=== PATIENT | female | born 1990 | race Caucasian/White ===

== ENCOUNTER 2018-04-29 17:40 | Inpatient (IN) | payer MEDICAID | END 2018-05-02 19:37 | disposition home or self-care (01) | LOC: SUR 3N 04-30 01:50 → ER 17:40 → ED HOLD 21:21 ==

== ENCOUNTER 2018-08-24 12:38 | Emergency (ER) | payer MEDICAID ==
[~2018-08-24] VITALS: Ht 175.3 cm; Wt 68.2 kg
[~2018-08-24 12:38] MED LIST: CLIN-96 PO; LACT1CAP26 PO
[2018-08-24] MEDS ORDERED: vancomycin/NS 1 GM ADD-VANTAGE 250 ML IV ONE (14:10)
[2018-08-24] MEDS ORDERED: CefTRIAXone 2gm/D5W 50ml 50 ML IV ONE (14:10)
[2018-08-24] MEDS ORDERED: normal saline 1000ML IV soln IV ONE (14:10)
[2018-08-24 14:46] LABS: BASOPHILS % (AUTO) 0.4 % (0-1); EOSINOPHILS % (AUTO) 0.5 % (0-6); HEMATOCRIT 38.6 % (35.0-45.0); HEMOGLOBIN 12.9 g/dl (12.0-16.0); LYMPHOCYTES # (AUTO) 1.4 X10'3 (1.1-4.8); LYMPHOCYTES % (AUTO) 18.5 % (21-51); MEAN CORPUSCULAR HEMOGLOBIN 29.3 PG (27.0-31.0); MEAN CORPUSCULAR HGB CONC 33.5 g/dL (33.0-36.5); MEAN CORPUSCULAR VOLUME 87.3 FL (78-98); MEAN PLATELET VOLUME 7.4 FL (7.4-10.4); MONOCYTES # (AUTO) 0.5 X10'3 (0-0.9); NEUTROPHILS # (AUTO) 5.7 X10'3 (1.8-7.7); NEUTROPHILS % (AUTO) 74.6 % (42-75); PLATELET COUNT 310 X10'3 (140-440); RED BLOOD COUNT 4.42 X10'6 (4.20-5.60); WHITE BLOOD COUNT 7.6 X10'3 (4.5-11.0)
[2018-08-24 14:57] LABS: PARTIAL THROMBOPLASTIN TIME 28 SECONDS (22-32)
[2018-08-24 15:10] LABS: ALANINE AMINOTRANSFERASE 21 U/L (12-78); ALBUMIN 3.2 G/DL (3.4-5.0); ALBUMIN/GLOBULIN RATIO 0.8 (1.1-1.5); ALKALINE PHOSPHATASE 97 IU/L (46-116); ANION GAP 5 (8-16); ASPARTATE AMINO TRANSFERASE 13 U/L (10-37); BILIRUBIN,TOTAL 0.5 MG/DL (0.1-1.0); BLOOD UREA NITROGEN 3 MG/DL (7-18); BUN/CREATININE RATIO 5.6 (6.6-38.0); CALCIUM 8.5 MG/DL (8.5-10.1); CHLORIDE 104 MMOL/L (99-107); CREATININE 0.54 MG/DL (0.40-0.90); GLUCOSE 92 MG/DL (70-104); MAGNESIUM 2.1 MG/DL (1.5-2.4); POTASSIUM 3.9 MMOL/L (3.5-5.1); SODIUM 139 MMOL/L (135-145); TOTAL CARBON DIOXIDE 30.4 MMOL/L (24-32); eGFR > 90 ML/MIN
[2018-08-24] MEDS ORDERED: iohexol 300mg/ml 100ml inj. ONE (15:14)
--- NOTE | 2018-08-24 15:45 | NUR ---
PATIENT TO CT VIA [facility] AT THIS TIME. PATIENT EASILY AROUSED VIA VERBAL STIMULI, TIRED, AND WEAK, NO SIGNS OF DISTRESS NOTED.
--- NOTE | 2018-08-24 15:59 | NUR ---
PAT BACK FROM CT AT THIS TIME, NO SIGNS OF DISTRESS NOTED, ALL SAFETY MEASURES IN PLACE.
[2018-08-24 16:28] LABS: URINE HCG NEGATIVE (NEG)
[2018-08-24 16:37] LABS: CLARITY,URINE SLIGHTLY CLOUDY (Clear); COLOR,URINE YELLOW (Yellow); GLUCOSE, URINE NEGATIVE (Neg); KETONES,URINE NEGATIVE (Neg); LEUKOCYTE ESTERASE ,URINE MODERATE (Neg); NITRITES, URINE NEGATIVE (Neg); OCCULT BLOOD,URINE SMALL (Neg); PH,URINE 6.5 (4.8-8.0); PROTEIN,URINE NEGATIVE (Neg); UROBILINOGEN,URINE 0.2 E.U/dL (0.2-1.0)
[2018-08-24 16:39] LABS: URINE AMPHETAMINE SCREEN POSITIVE (Neg); URINE BARBITUATE SCREEN NEGATIVE (Neg); URINE BENZODIAZEPINES SCREEN NEGATIVE (Neg); URINE CANNABINOID SCREEN NEGATIVE (Neg); URINE COCAINE SCREEN NEGATIVE (Neg); URINE METHADONE SCREEN NEGATIVE (Neg); URINE OPIATE SCREEN NEGATIVE (Neg); URINE PHENCYCLIDINE SCREEN NEGATIVE (Neg)
[2018-08-24 16:44] LABS: UA COLLECTION TYPE CLN CATCH MIDSTREAM
[2018-08-24 16:47] LABS: BACTERIA,URINE 1+ /HPF (Neg); RBC,URINE 0-2 /HPF (0-2); SQUAMOUS EPITHELIAL CELL,UR MANY /LPF (FEW)
[2018-08-24 16:48] LABS: MUCUS STRANDS FEW /LPF (Neg); TRICHOMONAS,URINE MOD /HPF (NEGATIVE)
[2018-08-24] MEDS ORDERED: SULF1TAB49 PO (17:22)
[2018-08-24] MEDS ORDERED: CEPH-572 PO (17:22)
[2018-08-24 17:41] VITALS: BP 155/99
== END 2018-08-24 17:46 | disposition home or self-care (01) ==
LOC: ER 12:38
DX: L02.01 Cutaneous abscess of face (principal); L03.211 Cellulitis of face; N39.0 Urinary tract infection, site not specified; Z86.14 Personal history of Methicillin resistant Staphylococcus aureus infection; J45.909 Unspecified asthma, uncomplicated; Z88.1 Allergy status to other antibiotic agents; Z79.899 Other long term (current) drug therapy
CPT/HCPCS: 10060; 36415; 70487; 80053; 80305; 81001; 81025; 83605; 83735; 84145; 85025; 85610; 85730; 87040; 87070; 87077; 87186; 93005; 96365; 96367; 99284; J0696; J3370; J7030; Q9967; 99283

== ENCOUNTER 2018-10-29 09:21 | Emergency (ER) | payer MEDICAID ==
[~2018-10-29] VITALS: Ht 175.3 cm; Wt 87.2 kg
[2018-10-29 09:34] VITALS: BP 152/98
[2018-10-29] MEDS ORDERED: GABA-532 PO (10:36)
== END 2018-10-29 10:52 | disposition home or self-care (01) ==
LOC: ER 09:22
DX: F19.10 Other psychoactive substance abuse, uncomplicated (principal); Z02.89 Encounter for other administrative examinations; R11.10 Vomiting, unspecified; J45.909 Unspecified asthma, uncomplicated; F15.90 Other stimulant use, unspecified, uncomplicated; F11.90 Opioid use, unspecified, uncomplicated; Z88.1 Allergy status to other antibiotic agents; Z79.899 Other long term (current) drug therapy
CPT/HCPCS: 99283

== ENCOUNTER 2018-11-10 12:43 | Emergency (ER) | payer MEDICAID ==
[~2018-11-10] VITALS: Ht 175.3 cm; Wt 86.4 kg
[~2018-11-10 12:43] MED LIST changes: +GABA-532 PO
[2018-11-10 13:39] VITALS: BP 164/80
[2018-11-10 13:44] LABS: CLARITY,URINE CLEAR (Clear); COLOR,URINE YELLOW (Yellow); GLUCOSE, URINE NEGATIVE (Neg); KETONES,URINE NEGATIVE (Neg); LEUKOCYTE ESTERASE ,URINE TRACE (Neg); NITRITES, URINE NEGATIVE (Neg); OCCULT BLOOD,URINE NEGATIVE (Neg); PH,URINE 6.5 (4.8-8.0); PROTEIN,URINE NEGATIVE (Neg); UA COLLECTION TYPE CLN CATCH MIDSTREAM; UROBILINOGEN,URINE 0.2 E.U/dL (0.2-1.0)
[2018-11-10 13:48] LABS: URINE HCG NEGATIVE (NEG)
[2018-11-10 13:51] LABS: SQUAMOUS EPITHELIAL CELL,UR FEW /LPF (FEW)
[2018-11-10 13:52] LABS: BACTERIA,URINE FEW /HPF (Neg); WBC,URINE 0-4 /HPF (0-4)
[2018-11-10 13:54] LABS: ALANINE AMINOTRANSFERASE 160 U/L (12-78); ALBUMIN 3.6 G/DL (3.4-5.0); ALKALINE PHOSPHATASE 132 IU/L (46-116); ANION GAP 4 (8-16); ASPARTATE AMINO TRANSFERASE 303 U/L (10-37); BILIRUBIN,TOTAL 0.4 MG/DL (0.1-1.0); BLOOD UREA NITROGEN 6 MG/DL (7-18); BUN/CREATININE RATIO 10.2 (6.6-38.0); CALCIUM 8.8 MG/DL (8.5-10.1); CHLORIDE 101 MMOL/L (99-107); CREATININE 0.59 MG/DL (0.40-0.90); GLUCOSE 100 MG/DL (70-104); POTASSIUM 3.6 MMOL/L (3.5-5.1); SODIUM 137 MMOL/L (135-145); TOTAL CARBON DIOXIDE 32.5 MMOL/L (24-32); TOTAL PROTEIN 7.3 G/DL (6.4-8.2); eGFR > 90 ML/MIN
[2018-11-10 13:55] LABS: BASOPHILS % (AUTO) 0.4 % (0-1); EOSINOPHILS % (AUTO) 0.7 % (0-6); HEMATOCRIT 37.8 % (35.0-45.0); HEMOGLOBIN 12.7 g/dl (12.0-16.0); LYMPHOCYTES # (AUTO) 2.3 X10'3 (1.1-4.8); MEAN CORPUSCULAR HEMOGLOBIN 30.4 PG (27.0-31.0); MEAN CORPUSCULAR HGB CONC 33.6 g/dL (33.0-36.5); MEAN CORPUSCULAR VOLUME 90.4 FL (78-98); MEAN PLATELET VOLUME 7.9 FL (7.4-10.4); MONOCYTES # (AUTO) 0.5 X10'3 (0-0.9); MONOCYTES % (AUTO) 8.3 % (2-12); NEUTROPHILS # (AUTO) 3.6 X10'3 (1.8-7.7); NEUTROPHILS % (AUTO) 55.6 % (42-75); PLATELET COUNT 295 X10'3 (140-440); RED BLOOD COUNT 4.18 X10'6 (4.20-5.60); WHITE BLOOD COUNT 6.6 X10'3 (4.5-11.0)
== END 2018-11-10 14:27 | disposition home or self-care (01) ==
LOC: ER 12:43
DX: R60.0 Localized edema (principal); R94.5 Abnormal results of liver function studies; R22.0 Localized swelling, mass and lump, head; J45.909 Unspecified asthma, uncomplicated; R22.33 Localized swelling, mass and lump, upper limb, bilateral; F17.200 Nicotine dependence, unspecified, uncomplicated; Z88.1 Allergy status to other antibiotic agents; Z88.8 Allergy status to other drugs, medicaments and biological substances; Z79.899 Other long term (current) drug therapy
CPT/HCPCS: 36415; 80053; 81001; 81025; 85025; 87088; 99283

== ENCOUNTER 2018-12-23 17:22 | Emergency (ER) | payer MEDICAID ==
[~2018-12-23] VITALS: Ht 165.1 cm; Wt 58.0 kg
[2018-12-23 17:30] VITALS: BP 124/74
== END 2018-12-23 21:11 | disposition home or self-care (01) ==
LOC: ER 17:23
DX: S92.512A Displaced fracture of proximal phalanx of left lesser toe(s), initial encounter for closed fracture (principal); J45.909 Unspecified asthma, uncomplicated; F10.99 Alcohol use, unspecified with unspecified alcohol-induced disorder; Z88.1 Allergy status to other antibiotic agents; Z88.8 Allergy status to other drugs, medicaments and biological substances; Z79.899 Other long term (current) drug therapy; W22.8XXA Striking against or struck by other objects, initial encounter; Y93.89 Activity, other specified; Y92.89 Other specified places as the place of occurrence of the external cause; Y99.8 Other external cause status; Y90.9 Presence of alcohol in blood, level not specified
CPT/HCPCS: 29515; 73630; 99283

== ENCOUNTER 2019-03-08 18:59 | Emergency (ER) | payer MEDICAID ==
[~2019-03-08] VITALS: Ht 175.3 cm; Wt 86.0 kg
[~2019-03-08 18:59] MED LIST changes: +CLIN-90 PO; -CLIN-96 PO
[2019-03-08 19:02] VITALS: BP 161/107
[2019-03-08] MEDS ORDERED: ketorolac trometh inj. 60 MG/2 ML VIAL IM ONE (20:15)
== END 2019-03-08 20:27 | disposition home or self-care (01) ==
LOC: ER 19:00
DX: T23.201A Burn of second degree of right hand, unspecified site, initial encounter (principal); J45.909 Unspecified asthma, uncomplicated; F10.99 Alcohol use, unspecified with unspecified alcohol-induced disorder; Z88.1 Allergy status to other antibiotic agents; Z88.8 Allergy status to other drugs, medicaments and biological substances; Z79.899 Other long term (current) drug therapy; X10.1XXA Contact with hot food, initial encounter; Y93.89 Activity, other specified; Y92.89 Other specified places as the place of occurrence of the external cause; Y99.8 Other external cause status; Y90.9 Presence of alcohol in blood, level not specified
CPT/HCPCS: 96372; 99283; J1885

== ENCOUNTER 2019-03-16 22:17 | Emergency (ER) | payer MEDICAID ==
[~2019-03-16] VITALS: Ht 175.3 cm; Wt 82.7 kg
[2019-03-16] MEDS ORDERED: LORazepam 0.5 MG tablet PO STA (23:04)
[2019-03-16] MEDS ORDERED: diphenhydrAMINE 25mg capsule PO ONE (23:05)
[2019-03-16 23:39] VITALS: BP 139/88
== END 2019-03-16 23:45 | disposition home or self-care (01) ==
LOC: ER 22:17
DX: S70.262A Insect bite (nonvenomous), left hip, initial encounter (principal); J45.909 Unspecified asthma, uncomplicated; F10.99 Alcohol use, unspecified with unspecified alcohol-induced disorder; Z88.1 Allergy status to other antibiotic agents; Z88.8 Allergy status to other drugs, medicaments and biological substances; Z79.899 Other long term (current) drug therapy; W57.XXXA Bitten or stung by nonvenomous insect and other nonvenomous arthropods, initial encounter; Y93.89 Activity, other specified; Y92.89 Other specified places as the place of occurrence of the external cause; Y99.8 Other external cause status; Y90.9 Presence of alcohol in blood, level not specified
CPT/HCPCS: 99284; Q0163

== ENCOUNTER 2019-04-04 19:19 | Emergency (ER) | payer MEDICAID ==
[~2019-04-04] VITALS: Ht 175.3 cm; Wt 81.8 kg
[2019-04-04 20:06] LABS: CLARITY,URINE CLEAR (Clear); COLOR,URINE YELLOW (Yellow); GLUCOSE, URINE NEGATIVE (Neg); KETONES,URINE NEGATIVE (Neg); LEUKOCYTE ESTERASE ,URINE SMALL (Neg); NITRITES, URINE NEGATIVE (Neg); OCCULT BLOOD,URINE NEGATIVE (Neg); PROTEIN,URINE NEGATIVE (Neg); UROBILINOGEN,URINE 0.2 E.U/dL (0.2-1.0)
[2019-04-04 20:07] LABS: URINE HCG NEGATIVE (NEG)
[2019-04-04 20:10] LABS: BASOPHILS % (AUTO) 0.6 % (0-1); EOSINOPHILS # (AUTO) 0.2 X10'3 (0-0.9); EOSINOPHILS % (AUTO) 2.9 % (0-6); HEMOGLOBIN 13.2 g/dl (12.0-16.0); LYMPHOCYTES # (AUTO) 2.2 X10'3 (1.1-4.8); LYMPHOCYTES % (AUTO) 38.4 % (21-51); MEAN CORPUSCULAR HEMOGLOBIN 29.3 PG (27.0-31.0); MEAN CORPUSCULAR HGB CONC 34.8 g/dL (33.0-36.5); MEAN CORPUSCULAR VOLUME 84.1 FL (78-98); MEAN PLATELET VOLUME 7.9 FL (7.4-10.4); MONOCYTES # (AUTO) 0.4 X10'3 (0-0.9); NEUTROPHILS % (AUTO) 52.1 % (42-75); PLATELET COUNT 302 X10'3 (140-440); RED BLOOD COUNT 4.51 X10'6 (4.20-5.60); RED CELL DISTRIBUTION WIDTH 14.6 % (11.5-14.5); WHITE BLOOD COUNT 5.8 X10'3 (4.5-11.0)
[2019-04-04 20:11] LABS: UA COLLECTION TYPE CLN CATCH MIDSTREAM
[2019-04-04] MEDS ORDERED: normal saline 1000ML IV soln IVB ONE (20:15)
[2019-04-04 20:24] LABS: BACTERIA,URINE FEW /HPF (Neg); RBC,URINE 0-2 /HPF (0-2); WBC,URINE 0-4 /HPF (0-4)
[2019-04-04 20:25] LABS: SQUAMOUS EPITHELIAL CELL,UR FEW /LPF (FEW)
[2019-04-04 20:28] LABS: URINE AMPHETAMINE SCREEN NEGATIVE (Neg); URINE BARBITUATE SCREEN NEGATIVE (Neg); URINE BENZODIAZEPINES SCREEN NEGATIVE (Neg); URINE CANNABINOID SCREEN NEGATIVE (Neg); URINE COCAINE SCREEN NEGATIVE (Neg); URINE METHADONE SCREEN NEGATIVE (Neg); URINE OPIATE SCREEN NEGATIVE (Neg); URINE PHENCYCLIDINE SCREEN NEGATIVE (Neg)
[2019-04-04 20:29] LABS: CHLORIDE 102 MMOL/L (99-107); GLUCOSE 99 MG/DL (70-104); POTASSIUM 3.7 MMOL/L (3.5-5.1); SODIUM 138 MMOL/L (135-145)
[2019-04-04 20:30] LABS: ALANINE AMINOTRANSFERASE 24 U/L (12-78); ALBUMIN 4.3 G/DL (3.4-5.0); ALBUMIN/GLOBULIN RATIO 1.2 (1.1-1.5); ALKALINE PHOSPHATASE 70 IU/L (46-116); ANION GAP 4 (8-16); ASPARTATE AMINO TRANSFERASE 19 U/L (10-37); BILIRUBIN,TOTAL 0.3 MG/DL (0.1-1.0); BLOOD UREA NITROGEN 6 MG/DL (7-18); BUN/CREATININE RATIO 7.6 (6.6-38.0); CALCIUM 8.9 MG/DL (8.5-10.1); CREATININE 0.79 MG/DL (0.40-0.90); TOTAL CARBON DIOXIDE 32.4 MMOL/L (24-32); TOTAL PROTEIN 7.9 G/DL (6.4-8.2); eGFR 85 ML/MIN
[2019-04-04 20:50] VITALS: BP 168/89
== END 2019-04-04 21:22 | disposition home or self-care (01) ==
LOC: ER 19:21
DX: I95.1 Orthostatic hypotension (principal); E86.0 Dehydration; J45.909 Unspecified asthma, uncomplicated; F10.99 Alcohol use, unspecified with unspecified alcohol-induced disorder; Z88.1 Allergy status to other antibiotic agents; Z88.8 Allergy status to other drugs, medicaments and biological substances; Z79.899 Other long term (current) drug therapy; Y90.9 Presence of alcohol in blood, level not specified
CPT/HCPCS: 36415; 71045; 80053; 80305; 81001; 81025; 84484; 85025; 87088; 93005; 99284; J7030

== ENCOUNTER 2019-04-30 18:19 | Emergency (ER) | payer MEDICAID ==
[~2019-04-30] VITALS: Ht 175.3 cm; Wt 81.8 kg
[2019-04-30 18:28] VITALS: BP 133/116
[2019-04-30] MEDS ORDERED: CIPR-259 PO (19:26)
--- NOTE | 2019-04-30 19:56 | NUR ---
PT DC READY. REPORTS SHE IS CONCERNED ABOUT TAKING THE CIPROFLOXOCIN D/T [employer] REPORTING SOME SIDE EFFECTS OF THE MEDICATION. SHE REPORTS TO HIM ALSO THAT SHE TAKES 15 MEDS AND THE DC INFO ABOUT THIS MED SHOWS CONFLICT TAKING SOME OF HER CURRENT MEDS WITH THIS ANTIBIOTIC. [employer] CASSANDRA TO CONSULT W/MD'S TO SEE ABOUT ANOTHER ABX FOR HER TO DC WITH. PT TEARFUL WHEN TALKING ABOUT THIS. PT REPORTS SHE HAS CHILDREN TO TAKE CARE OF AND THAT SHE NEEDS TO WALK DAILY TO HER REHAB PROGRAM AND SHE IS UNABLE TO BE INACTIVE SHE INTERPRETED THE [employer] DES[employer] TELING HER SHE WILL NEED TO BE IF SHE IS TAKING THE CIPROFLOXICIN.
[2019-04-30] MEDS ORDERED: CIPR10DR LEFT EAR (20:08)
[2019-04-30] MEDS ORDERED: CLIN-90 PO (20:15)
== END 2019-04-30 20:23 | disposition home or self-care (01) ==
LOC: ER 18:20
DX: H60.92 Unspecified otitis externa, left ear (principal); J45.909 Unspecified asthma, uncomplicated; Z88.1 Allergy status to other antibiotic agents; Z79.2 Long term (current) use of antibiotics; Z79.899 Other long term (current) drug therapy; Z86.14 Personal history of Methicillin resistant Staphylococcus aureus infection
CPT/HCPCS: 36415; 99283

== ENCOUNTER 2019-06-29 12:52 | Outpatient (CLI) | payer MEDICAID ==
[~2019-06-29 12:52] MED LIST changes: -CLIN-90 PO; +CLIN-97 PO
[2019-06-29] MEDS ORDERED: GABA-530 PO (13:31)
[2019-06-29] MEDS ORDERED: DOCU-267 PO (13:31)
[2019-06-29] MEDS ORDERED: TRAZ-256 PO (13:31)
[2019-06-29] MEDS ORDERED: BACL10TA2 PO (13:31)
[2019-06-29] MEDS ORDERED: BUPR1FIL3 SQ (13:31)
[2019-06-29] MEDS ORDERED: MELO-100 PO (13:31)
[2019-06-29] MEDS ORDERED: LAMO100T PO (13:31)
[2019-06-29] MEDS ORDERED: LURA80TA3 PO (13:31)
[2019-06-29] MEDS ORDERED: HYDR50TA65 PO (13:31)
[2019-06-29] MEDS ORDERED: ONDA-103 PO (13:31)
[2019-06-29 13:52] LABS: BASOPHILS % (AUTO) 0.6 % (0-1); EOSINOPHILS # (AUTO) 0.1 X10'3 (0-0.9); LYMPHOCYTES % (AUTO) 34.5 % (21-51); MEAN CORPUSCULAR HEMOGLOBIN 29.6 PG (27.0-31.0); MEAN PLATELET VOLUME 7.9 FL (7.4-10.4); MONOCYTES # (AUTO) 0.3 X10'3 (0-0.9); MONOCYTES % (AUTO) 6.1 % (2-12); NEUTROPHILS # (AUTO) 3.2 X10'3 (1.8-7.7); NEUTROPHILS % (AUTO) 56.8 % (42-75); PRE OP HEMATOCRIT 37.8 % (35.0-45.0); PRE OP HEMOGLOBIN 12.9 g/dL (12.0-16.0); PRE OP PLATELET COUNT 269 X10'3 (140-440); RED BLOOD COUNT 4.35 X10'6 (4.20-5.60); RED CELL DISTRIBUTION WIDTH 14.3 % (11.5-14.5)
[2019-06-29 14:01] LABS: ALBUMIN 4.1 G/DL (3.4-5.0); ALBUMIN/GLOBULIN RATIO 1.3 (1.1-1.5); ALKALINE PHOSPHATASE 66 IU/L (46-116); BLOOD UREA NITROGEN 8 MG/DL (7-18); BUN/CREATININE RATIO 10.4 (6.6-38.0); CALCIUM 8.5 MG/DL (8.5-10.1); CHLORIDE 103 MMOL/L (99-107); CREATININE 0.77 MG/DL (0.40-0.90); HCG SERUM QL NEGATIVE; PRE OP ALT 20 U/L (30-65); PRE OP ANION GAP 5 (8-16); PRE OP AST 21 U/L (10-37); PRE OP BILIRUB, TOTAL 0.5 MG/DL (0.0-1.0); PRE OP GLUCOSE 95 MG/DL (70-104); PRE OP POTASSIUM 4.1 MMOL/L (3.4-5.1); PRE OP SODIUM 140 MMOL/L (135-145); TOTAL CARBON DIOXIDE 31.7 MMOL/L (24-32); TOTAL PROTEIN 7.3 G/DL (6.4-8.2); eGFR 88 ML/MIN
== END 2019-06-29 23:59 | disposition home or self-care (01) ==
LOC: PRE-OP 12:52 → EDSTATUS 07-07 13:30
PROVIDERS: ATTEND Orthopaedic Surgery
DX: Z01.818 Encounter for other preprocedural examination (principal); G40.909 Epilepsy, unspecified, not intractable, without status epilepticus; G89.4 Chronic pain syndrome; G56.01 Carpal tunnel syndrome, right upper limb; J45.909 Unspecified asthma, uncomplicated; F17.209 Nicotine dependence, unspecified, with unspecified nicotine-induced disorders; E66.8 Other obesity; G56.02 Carpal tunnel syndrome, left upper limb; Z88.0 Allergy status to penicillin
CPT/HCPCS: 36415; 80053; 84703; 85025

== ENCOUNTER 2019-08-18 09:39 | Day surgery (SDC) | payer MEDICAID ==
[2019-08-12 15:32] LABS: BASOPHILS % (AUTO) 0.5 % (0-1); EOSINOPHILS # (AUTO) 0.1 X10'3 (0-0.9); EOSINOPHILS % (AUTO) 1.8 % (0-6); LYMPHOCYTES # (AUTO) 1.9 X10'3 (1.1-4.8); LYMPHOCYTES % (AUTO) 36.1 % (21-51); MEAN CORPUSCULAR HGB CONC 33.8 g/dL (33.0-36.5); MEAN CORPUSCULAR VOLUME 88.6 FL (78-98); MEAN PLATELET VOLUME 7.6 FL (7.4-10.4); MONOCYTES # (AUTO) 0.4 X10'3 (0-0.9); MONOCYTES % (AUTO) 7.3 % (2-12); NEUTROPHILS # (AUTO) 2.9 X10'3 (1.8-7.7); NEUTROPHILS % (AUTO) 54.3 % (42-75); PRE OP HEMATOCRIT 41.1 % (35.0-45.0); PRE OP HEMOGLOBIN 13.9 g/dL (12.0-16.0); PRE OP PLATELET COUNT 236 X10'3 (140-440); RED BLOOD COUNT 4.64 X10'6 (4.20-5.60); RED CELL DISTRIBUTION WIDTH 12.9 % (11.5-14.5)
[2019-08-12 15:49] LABS: ALBUMIN 4.4 G/DL (3.4-5.0); ALBUMIN/GLOBULIN RATIO 1.4 (1.1-1.5); ALKALINE PHOSPHATASE 66 IU/L (46-116); CALCIUM 8.9 MG/DL (8.5-10.1); CHLORIDE 102 MMOL/L (99-107); CREATININE 0.82 MG/DL (0.40-0.90); PRE OP ALT 22 U/L (30-65); PRE OP ANION GAP 7 (8-16); PRE OP AST 26 U/L (10-37); PRE OP BILIRUB, TOTAL 0.6 MG/DL (0.0-1.0); PRE OP GLUCOSE 98 MG/DL (70-104); PRE OP POTASSIUM 4.1 MMOL/L (3.4-5.1); PRE OP SODIUM 139 MMOL/L (135-145); TOTAL CARBON DIOXIDE 29.8 MMOL/L (24-32); TOTAL PROTEIN 7.6 G/DL (6.4-8.2); eGFR 82 ML/MIN
[2019-08-12 16:17] LABS: BLOOD UREA NITROGEN 9 MG/DL (7-18)
[~2019-08-18] VITALS: Ht 172.7 cm; Wt 80.1 kg
[~2019-08-18 09:39] MED LIST changes: +BACL10TA2 PO; +BUPR1FIL3 SQ; -CLIN-97 PO; +CLINDAMYCIN/D5W 900mg/50ml 50 ML IV ONE; +DOCU-267 PO; +GABA-530 PO; -GABA-532 PO; +HYDR50TA65 PO; -LACT1CAP26 PO; +LAMO100T PO; +LURA80TA3 PO; +MELO-100 PO; +ONDA-103 PO; +TRAZ-256 PO; +albuterol 2.5 MG/3 ML nebule NEB ONE; +famotidine 20mg tablet PO ONE; +ringers solution, lacted 1,000 ML IV SCH
[2019-08-18] MEDS ORDERED: BUPIVAcaine/PF 2.5 mg/ml (0.25%) 30ml vial ONE (10:48)
[2019-08-18] MEDS ORDERED: methylPREDNISolone sod succ 125mg/2ml vial ONE (10:48)
[2019-08-18] MEDS ORDERED: diazepam 5mg tablet PO ONE (10:50)
[2019-08-18] MEDS ORDERED: LIDOcaine 0.5% (5mg/ml) 50ml vial ONE (11:25)
[2019-08-18] MEDS ORDERED: fentaNYL/PF 50MCG/1 ML 2ML syringe ONE (11:40)
[2019-08-18] MEDS ORDERED: midazolam 2 mg/2 ml injection ONE (11:41)
[2019-08-18] MEDS ORDERED: propofol inj 20 ML IV ONE ×2 (11:54)
[2019-08-18] MEDS ORDERED: ringers solution, lacted 1,000 ML IV SCH (12:04)
[2019-08-18] MEDS ORDERED: proCHLORperazine 10 MG/2 ml inj IV PRN (12:05)
[2019-08-18] MEDS ORDERED: meperidine/PF 25mg/ml syringe IV PRN (12:05)
[2019-08-18] MEDS ORDERED: ondansetron/PF 4mg/2ml inj IV PRN (12:05)
[2019-08-18] MEDS ORDERED: ketorolac trometh. 30mg/ml inj. IV ONE (12:05)
[2019-08-18] MEDS ORDERED: fentaNYL/PF 50MCG/1 ML 2ML syringe IV PRN ×2 (12:05)
[2019-08-18] MEDS ORDERED: HYDROmorphone inj. 0.5 MG/0.5 ML DISP.SYRIN IV PRN ×2 (12:05)
[2019-08-18] MEDS ORDERED: acetaminophen 1,000mg/100ml IV 100 ML IV PRN (12:05)
[2019-08-18] MEDS ORDERED: BUPIVACAINE liposomal/PF 13.3 MG/ML vial IM ONE (12:08)
[2019-08-18 12:28] VITALS: BP 133/65
--- NOTE | 2019-08-18 12:28 | NUR ---
Received from OR via [facility], accompanied by Anesthesiologist [place] and report given by Anesthesiolgist. Pt responsive to questions but sleepy, mask to 10L and sats 100%. 20G left AC IVF LR 100cc/hr, right wrist wrapped with splint under dressing. Fingers have cap refill less than 3 seconds, warm to touch. Pt states she does not want pain medicine but does have some pain. Too tired to state number, will reassess and monitor closely.
[2019-08-18 12:38] VITALS: BP 129/78
[2019-08-18 12:48] VITALS: BP 131/72
[2019-08-18 12:58] VITALS: BP 128/72
[2019-08-18 13:10] VITALS: BP 98/78
[2019-08-18 13:14] VITALS: BP 98/78
--- NOTE | 2019-08-18 13:28 | NUR ---
Pt discharged to vehicle by wheelchair without incident. Pt alert and oriented, verbalized understanding of all DC information, and states she has no pain. She will f/u in 2 weeks. Fingers remain warm and good cap refill present. All belongings returned to patient.
== END 2019-08-18 13:28 | disposition home or self-care (01) ==
LOC: PAS 09:39
PROVIDERS: ATTEND Orthopaedic Surgery
DX: G56.01 Carpal tunnel syndrome, right upper limb (principal); G56.21 Lesion of ulnar nerve, right upper limb; G40.909 Epilepsy, unspecified, not intractable, without status epilepticus; F31.9 Bipolar disorder, unspecified; J45.909 Unspecified asthma, uncomplicated; F17.210 Nicotine dependence, cigarettes, uncomplicated; F41.9 Anxiety disorder, unspecified; M19.90 Unspecified osteoarthritis, unspecified site; G89.4 Chronic pain syndrome; Z90.49 Acquired absence of other specified parts of digestive tract; Z98.890 Other specified postprocedural states; Z88.1 Allergy status to other antibiotic agents; Z86.14 Personal history of Methicillin resistant Staphylococcus aureus infection; Z86.11 Personal history of tuberculosis; Z79.899 Other long term (current) drug therapy; Z80.9 Family history of malignant neoplasm, unspecified; Z11.59 Encounter for screening for other viral diseases
CPT/HCPCS: 36415; 64719; 64721; 80053; 82948; 85025; 87635; A6222; C9290; J1885; J2001; J2250; J2704; J2930; J3010; J3490; A4215; A4618; A6449; J7120

== ENCOUNTER 2019-08-26 00:05 | Emergency (ER) | payer MEDICAID ==
[~2019-08-26] VITALS: Ht 172.7 cm; Wt 80.0 kg
[~2019-08-26 00:05] MED LIST changes: -CLINDAMYCIN/D5W 900mg/50ml 50 ML IV ONE; -albuterol 2.5 MG/3 ML nebule NEB ONE; -famotidine 20mg tablet PO ONE; -ringers solution, lacted 1,000 ML IV SCH
[2019-08-26 00:11] VITALS: BP 159/87
--- NOTE | 2019-08-26 00:26 | NUR ---
SPOKE WITH MD HOPKINS WHO AGREES THAT THE SPLINT NEEDS TO BE REMOVED. PT IS SITTING UPRIGHT AND A PILLOW IS PLACED ONTO HER LAP. HER RIGHT ARM IS PLACED ON TOP OF THE PILLOW AND THE SPLINT IS CUT AWAY FROM THE TOP TO EXPOSE THE POSTERIOR HAND AND FOREARM. I EDUCATED PT NOT TO MOVE HER ARM AND THAT ONCE THE MD WAS AT BEDSIDE WE COULD EXAMINE THE ANTERIOR SIDE AND THE INCISION. PT VERBALIZED UNDERSTANDING TO NOT MOVE ARM. PT STATES THE NUMBNESS/TINGLING ALREADY FEELS BETTER AFTER REMOVING THE SPLINT.
[2019-08-26] MEDS ORDERED: ketorolac trometh inj. 60 MG/2 ML VIAL IM ONE (00:55)
== END 2019-08-26 01:07 | disposition home or self-care (01) ==
LOC: ER 00:06
DX: R20.2 Paresthesia of skin (principal); R20.0 Anesthesia of skin; M96.89 Other intraoperative and postprocedural complications and disorders of the musculoskeletal system; J45.909 Unspecified asthma, uncomplicated; Z86.14 Personal history of Methicillin resistant Staphylococcus aureus infection; Z72.89 Other problems related to lifestyle; Z98.890 Other specified postprocedural states; Z88.8 Allergy status to other drugs, medicaments and biological substances; Z88.1 Allergy status to other antibiotic agents; Z79.899 Other long term (current) drug therapy
CPT/HCPCS: 29125; 96372; 99283; J1885

== ENCOUNTER 2020-06-07 09:59 | Day surgery (SDC) | payer MEDICAID ==
[2020-05-30 12:15] LABS: BASOPHILS # (AUTO) 0.1 X10'3 (0-0.2); BASOPHILS % (AUTO) 0.9 % (0-1); EOSINOPHILS # (AUTO) 0.2 X10'3 (0-0.9); EOSINOPHILS % (AUTO) 3.6 % (0-6); LYMPHOCYTES # (AUTO) 2.2 X10'3 (1.1-4.8); LYMPHOCYTES % (AUTO) 32.5 % (21-51); MEAN CORPUSCULAR HGB CONC 33.8 g/dL (33.0-36.5); MEAN CORPUSCULAR VOLUME 88.8 FL (78-98); MEAN PLATELET VOLUME 7.8 FL (7.4-10.4); MONOCYTES # (AUTO) 0.5 X10'3 (0-0.9); MONOCYTES % (AUTO) 7.3 % (2-12); NEUTROPHILS # (AUTO) 3.7 X10'3 (1.8-7.7); NEUTROPHILS % (AUTO) 55.7 % (42-75); PRE OP HEMATOCRIT 39.5 % (35.0-45.0); PRE OP HEMOGLOBIN 13.4 g/dL (12.0-16.0); PRE OP PLATELET COUNT 289 X10'3 (140-440); RED BLOOD COUNT 4.45 X10'6 (4.20-5.60); RED CELL DISTRIBUTION WIDTH 11.8 % (11.5-14.5)
[2020-05-30 12:26] LABS: ALBUMIN 3.8 G/DL (3.4-5.0); ALBUMIN/GLOBULIN RATIO 0.9 (1.1-1.5); ALKALINE PHOSPHATASE 89 IU/L (46-116); BLOOD UREA NITROGEN 13 MG/DL (7-18); BUN/CREATININE RATIO 17.1 (6.6-38.0); CALCIUM 9.4 MG/DL (8.5-10.1); CHLORIDE 102 MMOL/L (99-107); CREATININE 0.76 MG/DL (0.40-0.90); PRE OP ALT 21 U/L (30-65); PRE OP ANION GAP 7 (8-16); PRE OP AST 21 U/L (10-37); PRE OP BILIRUB, TOTAL 0.3 MG/DL (0.0-1.0); PRE OP GLUCOSE 92 MG/DL (70-104); PRE OP POTASSIUM 4.5 MMOL/L (3.4-5.1); PRE OP SODIUM 139 MMOL/L (135-145); TOTAL CARBON DIOXIDE 30.4 MMOL/L (24-32); TOTAL PROTEIN 7.9 G/DL (6.4-8.2); eGFR 89 ML/MIN
[2020-05-30 13:04] LABS: HCG SERUM QL NEGATIVE
[~2020-06-07] VITALS: Ht 172.7 cm; Wt 96.4 kg
[~2020-06-07 09:59] MED LIST changes: -GABA-530 PO; +LAMO200T10 PO; -MELO-100 PO; -TRAZ-256 PO; +clindamycin-Cleocin 900mg/D5W 50 ML IV ONE; +famotidine 20mg tablet PO ONE; +ringers solution, lacted 1,000 ML IV SCH; +vancomycin 1,500 MG in NS 300ml IV soln IV ONE
[2020-06-07 10:30] VITALS: BP 128/71
[2020-06-07] MEDS ORDERED: methylPREDNISolone sod succ 125mg/2ml vial ONE (12:12)
[2020-06-07] MEDS ORDERED: BUPIVAcaine/PF 2.5 mg/ml (0.25%) 30ml vial ONE (12:13)
[2020-06-07] MEDS ORDERED: propofol inj 20 ML IV ONE (12:16)
[2020-06-07] MEDS ORDERED: midazolam 2 mg/2 ml injection ONE ×2 (12:16)
[2020-06-07] MEDS ORDERED: LIDOcaine 0.5% (5mg/ml) 50ml vial ONE (12:16)
[2020-06-07] MEDS ORDERED: fentaNYL/PF 50MCG/1 ML 2ML syringe ONE (12:16)
[2020-06-07 13:15] VITALS: BP 128/87
--- NOTE | 2020-06-07 13:15 | NUR ---
Received from OR via [facility], accompanied by Anesthesiologist DR DUENAS and report given by Anesthesiolgist. PATIENT A&OX4, DENIES PAIN, V/S WNL, NEUROVASCULAR CHECKS INTACT, SCD ON, LEFT WRIST DRESSING WITH SPLINT-CDI, ELEVATED WITH ICE BAG APPLIED. 20G R WRIST-LR RUNNING.
[2020-06-07 13:25] VITALS: BP 125/84
[2020-06-07 13:35] VITALS: BP 118/79
[2020-06-07 13:45] VITALS: BP 120/75
[2020-06-07] MEDS ORDERED: meperidine/PF 25mg/ml syringe IV PRN ×3 (13:45)
[2020-06-07] MEDS ORDERED: morphine 4 MG/ML inj SYRINge IV PRN (13:45)
[2020-06-07] MEDS ORDERED: proCHLORperazine 10 MG/2 ml inj IV PRN (13:45)
[2020-06-07] MEDS ORDERED: ondansetron/PF 4mg/2ml inj IV PRN (13:45)
[2020-06-07] MEDS ORDERED: morphine 2 MG/ML inj. syringe IV PRN (13:45)
[2020-06-07] MEDS ORDERED: ringers solution, lacted 1,000 ML IV SCH (13:45)
[2020-06-07 13:55] VITALS: BP 132/82
--- NOTE | 2020-06-07 13:55 | NUR ---
PATIENT A&OX4, DENIES PAIN, V/S WNL, NEUROVASCULAR CHECKS INTACT, SCDS OFF, LEFT WRIST DRESSING-WITH SPLINT CDIM ELEVATED WITH ICE BAG APPLIED. 20G R WRIST D/C WITH NO COMPLICATIONS OBSERVED. I HAVE REVIEWED D/C INSTRUCTIONS WITH PATIENT AND FAMILY AND THEY HAVE VERBALIZED UNDERSTANDING. PATIENT D/C HOME WITH FAMILY TO TRANSPORT AND ALL BELONGINGS..
== END 2020-06-07 13:55 | disposition home or self-care (01) ==
LOC: PAS 09:59
PROVIDERS: ATTEND Orthopaedic Surgery
DX: G56.02 Carpal tunnel syndrome, left upper limb (principal); G56.22 Lesion of ulnar nerve, left upper limb; J45.909 Unspecified asthma, uncomplicated; F41.9 Anxiety disorder, unspecified; E66.9 Obesity, unspecified; F43.10 Post-traumatic stress disorder, unspecified; F11.90 Opioid use, unspecified, uncomplicated; F31.30 Bipolar disorder, current episode depressed, mild or moderate severity, unspecified; F17.210 Nicotine dependence, cigarettes, uncomplicated; G89.4 Chronic pain syndrome; G40.909 Epilepsy, unspecified, not intractable, without status epilepticus; E66.8 Other obesity; Z68.31 Body mass index [BMI] 31.0-31.9, adult; Z88.1 Allergy status to other antibiotic agents; Z86.14 Personal history of Methicillin resistant Staphylococcus aureus infection; Z20.822 Contact with and (suspected) exposure to COVID-19; Z79.899 Other long term (current) drug therapy; Z90.49 Acquired absence of other specified parts of digestive tract; Z98.890 Other specified postprocedural states; Z80.9 Family history of malignant neoplasm, unspecified; Z81.8 Family history of other mental and behavioral disorders
CPT/HCPCS: 36415; 64719; 64721; 80053; 82948; 84703; 85025; 87635; A6222; J2001; J2250; J2704; J2930; J3010; J3370; J3490; J7040; A4215; A4565; A4618; A6449; A7000; J7120

== ENCOUNTER 2022-12-25 18:23 | Emergency (ER) | payer MEDICAID ==
[~2022-12-25 18:23] MED LIST changes: +DOCU-262 PO; -DOCU-267 PO; +LURA80TA2 PO; -LURA80TA3 PO; -clindamycin-Cleocin 900mg/D5W 50 ML IV ONE; -famotidine 20mg tablet PO ONE; -ringers solution, lacted 1,000 ML IV SCH; -vancomycin 1,500 MG in NS 300ml IV soln IV ONE
== END 2022-12-25 23:51 | disposition left against medical advice (07) ==
LOC: ER 18:24
DX: M79.643 Pain in unspecified hand (principal); Z53.21 Procedure and treatment not carried out due to patient leaving prior to being seen by health care provider